=== PATIENT | male | born 1950 | race Caucasian/White ===

== ENCOUNTER 2021-06-11 18:16 | Outpatient (REF) | payer MEDICARE, SELFPAY ==
[2021-06-11 18:03] LABS: Anion Gap 7.1 mmol/L (3-11); BUN 21 mg/dL (7-18); CO2 28.9 mmol/L (21.0-32.0); CREATININE 1.2 mg/dL (0.70-1.30); Calcium 8.7 mg/dL (8.5-10.1); Chloride 105 mmol/L (98-107); Estimated GFR 59.51 (mL/min/1.73m2); Glucose 86 mg/dL (74-106); Potassium 4.2 mmol/L (3.5-5.1); Sodium 141 mmol/L (136-145)
[2021-06-11 18:15] LABS: Calculated LDL 172 mg/dL (<100); Cholesterol 233 mg/dL (<200); HDL Cholesterol 49 mg/dL (40-60); Triglyceride 63 mg/dL (<150)
== END 2021-06-11 18:17 | disposition home or self-care (01) ==
LOC: NCHCN 18:16
PROVIDERS: Visit Provider Registered Nurse
DX: Z02.89 Encounter for other administrative examinations (principal); Z00.00 Encounter for general adult medical examination without abnormal findings
CPT/HCPCS: 80048; 80061

== ENCOUNTER 2023-04-13 13:36 | Outpatient (REF) | payer MEDICARE, SELFPAY ==
--- OUTSIDE RECORDS SUMMARY | 2023-04-13 13:42 | XMS_ITS | CCD ---
Author Name Unknown Address [address] [place] [address] [id number] Organization Unknown Address [address] [place] [address] [phone] Care Team Providers Care Hoop Puncher Name Role Phone DANIEL COLLAZOANMARIE Attending Physician [phone] Vital Signs Unknown or Not Available. Allergies Allergy Code Allergy Type Reaction Status No Known Drug Allergies 0 No known drug allergies Active Procedures Unknown or Not Available. History of Immunizations Immunization Code Date Td (adult), 5 Lf tetanus toxoid, preservative fr ee, adsorbed 113 02/24/2022 Problems Problem Code Start Date Resolved Date Status Seizure [id number] Active Results Unknown or Not Available. Active Medications Medication Code Dose Units Frequency Route Modificatio n Start Date/Time Keppra 1000MG Oral Tablet 117105 1 TABLET THREE TIMES A DAY ORAL 02/24/2023 13:53 Prescription Detail TAKE 1 TABLET ORAL THREE TIMES A DAY Meloxicam 15MG Oral Tablet 732115 15 MILLIGRAMS NEEDED ORAL 023 13:53 Prescription Detail TAKE 15 MILLIGRAMS ORAL NEEDED Potassium Chloride 20MEQ Oral Tablet, Extended Release 4680601 1 TABLET TWICE A DAY ORAL 02/25/20 23 13:53 Prescription Detail TAKE 1 TABLET ORAL TWICE A DAY x 5 days then continue 1 tab daily Medications Administered During Visit Unknown or Not Available. Encounters Unknown or Not Available. Social History Smoking Status Code Start Date End Date Former smoker [id number] Patient Decision Aids Unknown or Not Available. Discharge Instructions You were admitted to [facility] on 03/30/2023 09:37 You were discharged from [facility] on 03/30/2023 09:37 Should you have any questions prior to discharge, please contact a member of your healthcare team. If you have left the hospital and have any questions, please contact your primary care physician. Chief Complaint and Reason For Visit Unknown or Not Available. Function Status Unknown or Not Available. Plan of Care Unknown or Not Available. Referral/Transition of Care Unknown or Not Available.
--- OUTSIDE RECORDS SUMMARY | 2023-04-13 13:43 | XMS_ITS | CCD ---
Author Name Unknown Address [address] [place] [address] [phone] Organization Unknown Address [address] [place] [address] [phone] Care Team Providers Care Pattern Filer Name Role Phone JULIETA SIMS Attending Physician [phone] Vital Signs Unknown or Not Available. Allergies Allergy Code Allergy Type Reaction Status No Known Drug Allergies 0 No known drug allergies Active Procedures Unknown or Not Available. History of Immunizations Immunization Code Date Td (adult), 5 Lf tetanus toxoid, preservative fr ee, adsorbed 113 02/24/2022 Problems Problem Code Start Date Resolved Date Status Seizure [id number] Active Results BASIC METABOLIC PANEL (BMP) - Collect Date/Time: 03/18/2023 09:13 Test Name Code Test Result Test Units Test Ref Rang e GLUCOSE 2345-7 76 mg/dL L=70 H=116 BUN 3094-0 16 mg/dL L=6 H=25 CREATININE 2160-0 1.25 mg/dL L=0.67 H=1.17 SODIUM SERUM 2951-2 136 mmol/L L=136 H=145 POTASSIUM SERUM 2823-3 4.4 mmol/L L=3.4 H=5 .2 CHLORIDE SERUM 2075-0 101 mmol/L L=96 H=110 CARBON DIOXIDE (CO2) 2028-9 29 mmol/L L=22 H=34 ANION GAP 17925-4 5.8 mmol/L CALCIUM SERUM 70701-0 8.7 mg/dL L=8.2 H=10. 2 AGE 72 years eGFR (non-Afr.Amer.) 56017-8 57 mL/min eGFR (Afr-Chinese) 71489-2 69 mL/min FERRITIN - Collect Date/Time : 03/18/2023 09:13 Test Name Code Test Result Test Units Test Ref Rang e FERRITIN 2276-4 131 ng/mL L=8 H=388 FREE THYROXINE (FREE T4)* - Collect Date/Time: 03/18/2023 09:13 Test Name Code Test Result Test Units Test Ref Rang e FREE THYROXINE 3024-7 1.07 ng/dL L=0.76 H=1 .46 IRON - Collect Date/Time: 09:13 Test Name Code Test Result Test Units Test Ref Rang e IRON 2498-4 102 ug/dL L=35 H=150 IRON BINDING CAPACITY - Dominique ect Date/Time: 03/18/2023 09:13 Test Name Code Test Result Test Units Test Ref Rang e IBC 2500-7 292 ug/dL L=260 H=400 MAGNESIUM SERUM* - Collect D ate/Time: 03/18/2023 09:13 Test Name Code Test Result Test Units Test Ref Rang e MAGNESIUM 30646-2 2.1 mg/dL L=1.8 H=2.4 TSH THYROID STIMULATING HORM ONE* - Collect Date/Time: 03/18/2023 09:13 Test Name Code Test Result Test Units Test Ref Rang e TSH 3014-8 2.758 uIU/mL L=0.360 H=3.74 0 LDL CHOLESTEROL (DIRECT ASSA Y) - Collect Date/Time: 03/18/2023 09:13 Test Name Code Test Result Test Units Test Ref Rang e LDL Chol(Beta-Quantification), S 36203-3 178 N/A Active Medications Medication Code Dose Units Frequency Route Modificatio n Start Date/Time Keppra 1000MG Oral Tablet 174348 1 TABLET THREE TIMES A DAY ORAL 02/24/2023 13:53 Prescription Detail TAKE 1 TABLET ORAL THREE TIMES A DAY Meloxicam 15MG Oral Tablet 285104 15 MILLIGRAMS NEEDED ORAL 023 13:53 Prescription Detail TAKE 15 MILLIGRAMS ORAL NEEDED Potassium Chloride 20MEQ Oral Tablet, Extended Release 8325963 1 TABLET TWICE A DAY ORAL 02/25/20 23 13:53 Prescription Detail TAKE 1 TABLET ORAL TWICE A DAY x 5 days then continue 1 tab daily Medications Administered During Visit Unknown or Not Available. Encounters Encounter Diagnosis Diagnosis Code Start Date Unspecified convulsions R569 03/18/20 Social History Smoking Status Code Start Date End Date Former smoker [id number] Patient Decision Aids Unknown or Not Available. Discharge Instructions You were admitted to [facility] on 03/18/2023 08:59 with a principal diagnosis of Unspecified convulsions You had the following tests done:BASIC METABOLIC PANEL (BMP)FERRITINFREE THYROXINE (FREE T4)*IRONIRON BINDING CAPACITYLDL CHOLESTEROL (DIRECT ASSAY)MAGNESIUM SERUM*TSH THYROID STIMULATING HORMONE* You were discharged from [facility] on 03/18/2023 08:59 Should you have any questions prior to [...]
--- OUTSIDE RECORDS SUMMARY | 2023-04-13 13:43 | XMS_ITS | CCD ---
Author Name Unknown Address [address] [place] [address] [phone] Organization Unknown Address [address] [place] [address] [phone] Care Team Providers Care Process Owner Name Role Phone JOSH MUNIZ Attending Physician [phone] CAROL LEVI Er Physician 0 [phone] CEDRIC Paul Registered Nurse [phone] Vital Signs Vital Sign Value Unit Date/Time Recent/Initial ? BMI (Body Mass Index) 26.63 kg/m^2 02/24/2022 16: 56 Initial VS Weight Measured 170 lbs 02/24/2022 16:56 Ini tial VS Height 67 in 02/24/2022 16:56 Initial VS BSA (Body Surface Area) 1.91 m^2 02/24/2022 1 6:56 Initial VS BP Systolic 122 mmHg 02/24/2022 16:56 Initial VS BP Diastolic 89 mmHg 02/24/2022 16:56 Initia l VS Respiratory Rate 14 bpm 02/24/2022 16:56 In itial VS Heart Rate 55 bpm 02/24/2022 16:56 Initial VS O2 % BldC Oximetry 99 % 02/24/2022 16:56 Initial VS Body Temperature 36.9 degrees 02/24/2022 16:56 In itial VS Allergies Allergy Code Allergy Type Reaction Status No Known Drug Allergies 0 No known drug allergies Active Procedures Unknown or Not Available. History of Immunizations Immunization Code Date Td (adult), 5 Lf tetanus toxoid, preservative fr ee, adsorbed 113 02/24/2022 Problems Problem Code Start Date Resolved Date Status Seizure [id number] Active Vertigo [id number] 02/24/2023 Resolved Vertigo [id number] 02/24/2023 Resolved Results Unknown or Not Available. Active Medications Medications Administered During Visit Medication Dose Units Frequency Route Date/Time of Last Dose TETANUS/DIPTHERIA TOX SDV AD ULT 0.5ML 0.5 ML X1 IM 02/24/2022 17:1 2 Encounters Encounter Diagnosis Diagnosis Code Start Date Laceration without foreign b sukhi of right hand, initial encounter [id number] 02/24/2022 Social History Unknown or Not Available. Patient Decision Aids Unknown or Not Available. Discharge Instructions You were admitted to [facility] on 02/24/2022 16:35 with a principal diagnosis of Laceration without foreign body of right hand, initial encounter You were discharged from [facility] on 02/24/2022 18:16 Should you have any questions prior to discharge, please contact a member of your healthcare team. If you have left the hospital and have any questions, please contact your primary care physician. Chief Complaint and Reason For Visit Chief Complaint Date of Onset HAND LACERATION Function Status Unknown or Not Available. Plan of Care Unknown or Not Available. Referral/Transition of Care Unknown or Not Available.
--- OUTSIDE RECORDS SUMMARY | 2023-04-13 13:43 | XMS_ITS | CCD ---
Author Name Unknown Address [address] [place] [address] [phone] Organization Unknown Address [address] [place] [address] [phone] Care Team Providers Care Operations Lead Name Role Phone DANIEL COLLAZOANMARIE Attending Physician [phone] Vital Signs Unknown or Not Available. Allergies Allergy Code Allergy Type Reaction Status No Known Drug Allergies 0 No known drug allergies Active Procedures Unknown or Not Available. History of Immunizations Immunization Code Date Td (adult), 5 Lf tetanus toxoid, preservative fr ee, adsorbed 113 02/24/2022 Problems Problem Code Start Date Resolved Date Status Seizure 79727447 Active Results Unknown or Not Available. Active Medications Medication Code Dose Units Frequency Route Modificatio n Start Date/Time Keppra 1000MG Oral Tablet 930966 1 TABLET THREE TIMES A DAY ORAL 02/24/2023 13:53 Prescription Detail TAKE 1 TABLET ORAL THREE TIMES A DAY Meloxicam 15MG Oral Tablet 895032 15 MILLIGRAMS NEEDED ORAL 023 13:53 Prescription Detail TAKE 15 MILLIGRAMS ORAL NEEDED Potassium Chloride 20MEQ Oral Tablet, Extended Release 1293789 1 TABLET TWICE A DAY ORAL 02/25/20 23 13:53 Prescription Detail TAKE 1 TABLET ORAL TWICE A DAY x 5 days then continue 1 tab daily Medications Administered During Visit Unknown or Not Available. Encounters Encounter Diagnosis Diagnosis Code Start Date Localization-related symptomatic epilepsy [id number] 002 03/23/2023 Social History Smoking Status Code Start Date End Date Former smoker [id number] Patient Decision Aids Unknown or Not Available. Discharge Instructions You were admitted to [facility] on 03/23/2023 09:04 with a principal diagnosis of Localization-related (focal) (partial) symptomatic epilepsy and epileptic syndromes with complex partial seizures, not intractable, without status epilepticus You were discharged from [facility] on 03/23/2023 09:04 Should you have any questions prior to [...]
--- OUTSIDE RECORDS SUMMARY | 2023-04-13 13:43 | XMS_ITS | CCD ---
Author Name Unknown Address [address] [place] [address] [phone] Organization Unknown Address [address] [place] [address] [phone] Care Team Providers Care Baby Stroller Rental Clerk Name Role Phone JULIETA SIMS Attending Physician [phone] NEELAM MENCHACA Er Physician 2 [phone] AMARJIT SALINAS (Secondary) Physician 8 [phone] Tulio, WOLFGANG Medina Registered Nurse [phone] G., ALICIA Fisher Registered Nurse [phone] N., ADI Registered Nurse [phone] Vital Signs Vital Sign Value Unit Date/Time Recent/Initial ? BMI (Body Mass Index) 26.63 kg/m^2 02/23/2023 11: 09 Initial VS Weight Measured 170 lbs 02/23/2023 11:09 Ini tial VS Height 67 in 02/23/2023 11:09 Initial VS BSA (Body Surface Area) 1.91 m^2 02/23/2023 1 1:09 Initial VS BP Systolic 133 mmHg 02/23/2023 11:09 Initial VS BP Diastolic 81 mmHg 02/23/2023 11:09 Initia l VS Respiratory Rate 16 bpm 02/23/2023 11:09 In itial VS Heart Rate 62 bpm 02/23/2023 11:09 Initial VS O2 % BldC Oximetry 100 % 02/23/2023 11:09 Initial VS Body Temperature 35.6 degrees 02/23/2023 11:09 In itial VS BP Systolic 104 mmHg 02/24/2023 09:58 Most Re cent VS BP Diastolic 70 mmHg 02/24/2023 09:58 Most R ecent VS Respiratory Rate 15 bpm 02/24/2023 09:[address] Recent VS Heart Rate 59 bpm 02/24/2023 09:58 Most Rec ent VS O2 % BldC Oximetry 98 % 02/24/2023 09:58 Most Recent VS Body Temperature 35.9 degrees 02/24/2023 09:[address] Recent VS BMI (Body Mass Index) 26.63 kg/m^2 02/24/2023 09: 59 Most Recent VS Weight Measured 170 lbs 02/24/2023 09:59 Mos t Recent VS Height 67 in 02/24/2023 09:59 Most Rec ent VS BSA (Body Surface Area) 1.91 m^2 02/24/2023 0 9:59 Most Recent VS Allergies Allergy Code Allergy Type Reaction Status No Known Drug Allergies 0 No known drug allergies Active Procedures Unknown or Not Available. History of Immunizations Immunization Code Date Td (adult), 5 Lf tetanus toxoid, preservative fr ee, adsorbed 113 02/24/2022 Problems Problem Code Start Date Resolved Date Status Seizure [id number] Active Vertigo [id number] 02/24/2023 Resolved Vertigo 114465652 02/24/2023 Resolved Results AMMONIA - Collect Date/Time: 02/23/2023 13:40 Test Name Code Test Result Test Units Test Ref Rang e AMMONIA 12165-1 19 umol/L L=19 H=54 BASIC METABOLIC PANEL (BMP) - Collect Date/Time: 02/24/2023 06:20 Test Name Code Test Result Test Units Test Ref Rang e GLUCOSE 2345-7 77 mg/dL L=70 H=116 BUN 3094-0 8 mg/dL L=6 H=25 CREATININE 2160-0 0.79 mg/dL L=0.67 H=1.17 SODIUM SERUM 2951-2 144 mmol/L L=136 H=145 POTASSIUM SERUM 2823-3 2.9 mmol/L L=3.4 H=5 .2 CHLORIDE SERUM 2075-0 115 mmol/L L=96 H=110 CARBON DIOXIDE (CO2) 2028-9 21 mmol/L L=22 H=34 ANION GAP 93358-5 7.6 mmol/L CALCIUM SERUM 58338-1 6.1 mg/dL L=8.2 H=10. 2 AGE 72 years eGFR (non-Afr.Amer.) 81616-6 96 mL/min eGFR (Afr-Algerian) 76534-0 116 mL/min COMPREHENSIVE METABOLIC PANE L (CMP) - Collect Date/Time: 02/23/2023 11:40 Test Name Code Test Result Test Units Test Ref Rang e GLUCOSE 2345-7 113 mg/dL L=70 H=116 BUN 3094-0 18 mg/dL L=6 H=25 CREATININE 2160-0 1.25 mg/dL L=0.67 H=1.17 SODIUM SERUM 2951-2 136 mmol/L L=136 H=145 POTASSIUM SERUM 2823-3 3.5 mmol/L L=3.4 H=5 .2 CHLORIDE SERUM 2075-0 100 mmol/L L=96 H=110 CARBON DIOXIDE (CO2) 2028-9 23 mmol/L L=22 H=34 ANION GAP 28880-7 12.9 mmol/L CALCIUM SERUM 18195-6 8.6 mg/dL L=8.2 H=10. 2 BILIRUBIN TOTAL 1975-2 1.0 mg/dL L=0.0 H=1 .3 ALK. PHOS. 6768-6 63 U/L L=46 H=116 SGOT (AST) 1920-8 34 U/L L=15 H=37 SGPT (ALT) 1742-6 29 U/L L=12 H=78 TOTAL PROTEIN 2885-2 7.5 gm/dL L=6.0 H=8.0 ALBUMIN 1751-7 3.5 gm/dL L=3.4 H=5.0 AGE 72 years eGFR (non-Afr.Amer.) 57241-0 57 mL/min eGFR (Afr-Algerian) 03043-5 69 mL/min LACTIC ACID - Collect Date/T zac: 02/24/2023 06:20 Test Name Code Test Result Test Units Test Ref Rang e LACTIC ACID 60857-2 0.6 mmol/L L=0.7 H=2.1 LACTIC ACID - Collect Date/T zac: 02/23/2023 11:40 Test Name Code Test Result Test Units Test Ref Rang e LACTIC ACID 84244-5 4.3 mmol/L L=0.7 H=2.1 LIPASE* NEW - Collect Date/T zac: 02/23/2023 11:40 Test Name Code Test Result Test Units Test Ref Rang e LIPASE. 56 U/L L=16 H=77 MAGNESIUM SERUM* - Collect D ate/Time: 02/24/2023 06:20 Test Name Code Test Result Test Units Test Ref Rang e MAGNESIUM 22104-9 1.2 mg/dL L=1.8 H=2.4 MAGNESIUM SERUM* - Collect D ate/Time: 02/23/2023 11:40 Test Name Code Test Result Test Units Test Ref Rang e MAGNESIUM 16716-1 1.7 mg/dL L=1.8 H=2.4 NOVA GLUCOSE FINGER HEEL CAP ILLARY - Collect Date/Time: 02/23/2023 11:30 Test Name Code Test Result Test Units Test Ref Rang e GLUCOSE CAP 39852-1 111 mg/dL L=70 H=116 CBC W/ DIFFERENTIAL* - Colle ct Date/Time: 02/24/2023 06:20 Test Name Code Test Result Test Units Test Ref Rang e WBC 6690-2 5.65 th/cmm L=5.00 H=10.00 NEUT % 72.8 % L=40.0 H=80.0 LYMPH % 14.2 % L=10.0 H=50.0 MONO % 08621-4 8.0 % L=2.0 H=12.0 EOS % 3.9 % L=0.0 H=8.0 BASO % 0.9 % L=0.0 H=3.0 IG % 2514-8 0.2 % L=0.0 H=1.1 NRBC % 16077-3 0.0 % L=0.0 H=0.0 NEUT abs count 751-8 4.1 th/cmm L=1.6 H=8. 4 LYMPH abs count 731-0 0.8 th/cmm L=1.5 H=4 .0 MONO abs count 742-7 0.5 th/cmm L=0.2 H=1. 0 EOS abs count 711-2 0.2 th/cmm L=0.0 H=0.5 BASO abs count 704-7 0.1 th/cmm L=0.0 H=0. 2 IG abs count 81366-0 0.0 th/cmm L=0.0 H=0.1 NRBC abs count 94800-3 0.0 mil/cmm L=0.0 H=0. 0 RBC 789-8 3.96 mil/cmm L=4.30 H=6.20 HEMOGLOBIN 718-7 11.6 gm/dL L=13.0 H=17.0 HEMATOCRIT 4544-3 35 % L=45 H=52 MCV 787-2 88 fL L=82 H=92 MCH 785-6 29.3 pg L=27.0 H=31.0 MCHC 786-4 33.2 % L=32.0 H=36.0 RDW-SD 788-0 41.9 fL L=39.0 H=49.0 PLATELET COUNT 777-3 190 th/cmm L=150 H=45 0 CBC W/ DIFFERENTIAL* - Colle ct Date/Time: 02/23/2023 11:40 Test Name Code Test Result Test Units Test Ref Rang e WBC 6690-2 5.80 th/cmm L=5.00 H=10.00 NEUT % 69.6 % L=40.0 H=80.0 LYMPH % 16.4 % L=10.0 H=50.0 MONO % 35243-1 9.3 % L=2.0 H=12.0 EOS % 3.1 % L=0.0 H=8.0 BASO % 1.4 % L=0.0 H=3.0 IG % 2514-8 0.2 % L=0.0 H=1.1 NRBC % 48478-6 0.0 % L=0.0 H=0.0 NEUT abs count 751-8 4.0 th/cmm L=1.6 H=8. 4 LYMPH abs count 731-0 1.0 th/cmm L=1.5 H=4 .0 MONO abs count 742-7 0.5 th/cmm L=0.2 H=1. 0 EOS abs count 711-2 0.2 th/cmm L=0.0 H=0.5 BASO abs count 704-7 0.1 th/cmm L=0.0 H=0. 2 IG abs count 25574-5 0.0 th/cmm L=0.0 H=0.1 NRBC abs count 76474-4 0.0 mil/cmm L=0.0 H=0. 0 RBC 789-8 4.45 mil/cmm L=4.30 H=6.20 HEMOGLOBIN 718-7 13.2 gm/dL L=13.0 H=17.0 HEMATOCRIT 4544-3 38 % L=45 H=52 MCV 787-2 86 fL L=82 H=92 MCH 785-6 29.7 pg L=27.0 H=31.0 MCHC 786-4 34.4 % L=32.0 H=36.0 RDW-SD 788-0 40.0 fL L=39.0 H=49.0 PLATELET COUNT 777-3 228 th/cmm L=150 H=45 0 PT PROTHROMBIN TIME* - Colle ct Date/Time: 02/23/2023 11:40 Test Name Code Test Result Test Units Test Ref Rang e PROTIME 5902-2 9.5 seconds L=9.3 H=11.4 INR 47759-2 0.91 L=2.00 H=3.00 PTT PARTIAL THROMBOPLASTIN T ZAC* - Collect Date/Time: 02/23/2023 11:40 Test Name Code Test Result Test Units Test Ref Rang e PTT 39123-3 23.2 seconds L=24.5 H=32.8 DRUG SCN 13 PANEL (MEDTOX)* - Collect Date/Time: 02/23/2023 18:29 Test Name Code Test Result Test Units Test Ref Rang e CANNABINOIDS 61622-1 NEGATIVE N/A Cutoff = 50 ng/mL PHENCYCLIDINE 77306-3 NEGATIVE N/A Cutoff = 25 ng/mL COCAINE 48471-6 NEGATIVE N/A Cutoff = 150 n g/mL METHAMPHETAMINES 24314-3 NEGATIVE N/A Cutoff = 500 ng/mL OPIATES 32424-6 NEGATIVE N/A Cutoff = 100 n g/mL AMPHETAMINES 98428-0 NEGATIVE N/A Cutoff = 500 ng/mL BENZODIAZEPINES 80789-3 POSITIVE N/A Cutoff = 150 ng/mL TRICYCLIC ANTIDEP 3533-7 NEGATIVE N/A Cutoff = 300 ng/mL METHADONE 42230-3 NEGATIVE N/A Cutoff = 200 n g/mL BARBITURATES 76395-7 NEGATIVE N/A Cutoff = 200 ng/mL OXYCODONE 74413-2 NEGATIVE N/A Cutoff = 100 n g/mL PROPOXYPHENE 43232-5 NEGATIVE N/A Cutoff = 300 ng/mL BUPRENORPHINE 3414-0 NEGATIVE N/A Cutoff = 10 mg/mL URINALYSIS WITH REFLEX CULT IF POSITIVE* - Collect Date/Time: 02/23/2023 18:29 Test Name Code Test Result Test Units Test Ref Rang e COLLECTION MODE: 60638-4 CLEAN CATCH N/A Color 5778-6 YELLOW N/A yellow Appearance 5767-9 CLEAR N/A clear Glucose urine 88349-2 NEGATIVE N/A negative mg /dl Bilirubin 5770-3 NEGATIVE N/A negative Ketones 2514-8 NEGATIVE N/A negative mg/dl Spec gravity 5811-5 1.010 N/A 1.003 - 1.03 0 pH urine 2756-5 8.0 N/A 5.0 - 7.0 Protein 80472-8 NEGATIVE N/A negative mg/dl Urobilinogen 01373-9 0.2 N/A <or= 1 EU/dl Nitrite. 5802-4 NEGATIVE N/A negative Blood 5794-3 NEGATIVE N/A negative Leukocytes. NEGATIVE N/A negative MICROSCOPIC NOT INDICAT N/A PROLACTIN - Collect Date/Angel e: 02/23/2023 13:40 Test Name Code Test Result Test Units Test Ref Rang e Prolactin 14.4 N/A 2.1-17.7 Active Medications Medication Code Dose Units Frequency Route Modificatio n Start Date/Time Keppra 1000MG Oral Tablet 898959 1 TABLET THREE TIMES A DAY ORAL 02/24/2023 13:53 Prescription Detail TAKE 1 TABLET ORAL THREE TIMES A DAY Meloxicam 15MG Oral Tablet 102787 15 MILLIGRAMS NEEDED ORAL 023 13:53 Prescription Detail TAKE 15 MILLIGRAMS ORAL NEEDED Potassium Chloride 20MEQ Oral Tablet, Extended Release 8532029 1 TABLET TWICE A DAY ORAL 02/25/20 23 13:53 Prescription Detail TAKE 1 TABLET ORAL TWICE A DAY x 5 days then continue 1 tab daily Medications Administered During Visit Medication Dose Units Frequency Route Date/Time of Last Dose ONDANSETRON INJ SDV: 4MG/2ML 4 MG X1 I ELECTRIC LOCOMOTIVE FIRER/FIREMAN 02/23/2023 12:18 LORazepam INJ SYRINGE: 2MG/ML 1 MG X1 IVP 02/23/2023 12:51 LevETIRAcetam IVPB PREMIX: 500MG/100ML 2000 MG X1 IVPB 02/23/2023 13:2 1 LORazepam INJ SYRINGE: 2MG/ML 1 MG X1 IVP 02/23/2023 13:22 LORazepam INJ SYRINGE: 2MG/ML 1 MG X1 IVP 02/23/2023 13:21 LACTATED RINGERS 1000ML 1000 ML X1 IV 02/23/2023 13:51 ONDANSETRON INJ SDV: 4MG/2ML 4 MG X1 I ELECTRIC LOCOMOTIVE FIRER/FIREMAN 02/23/2023 15:10 LevETIRAcetam TABLET: 250MG 1000 MG X1 PO 02/23/2023 22:37 ACETAMINOPHEN INJ IVPB: 1000MG/100ML 1000 MG PRN Q6H IVPB 02/23/2023 20:1 5 LevETIRAcetam TABLET: 250MG 1500 MG BID PO 02/24/2023 08:30 MAGNESIUM SULF PREMIX IV BAG : 4GM/100ML 4 GM X1 IVPB 02/24/2023 07:5 1 POTASSIUM CHL TABLET: 20mEq 20 MEQ X1 PO 02/24/2023 08:30 POTASSIUM CHL TABLET: 20mEq 20 MEQ TID WITH TJ D PO 02/24/2023 13:01 POTASSIUM CHL TABLET: 20mEq 20 MEQ X1 PO 02/24/2023 16:21 Encounters Encounter Diagnosis Diagnosis Code Start Date Localization-related (focal) (partial) symptomatic epilepsy and epileptic syndromes with complex partial seizures, not intractable, without status epilepticus [id number] 02/23/2023 Social History Smoking Status Code Start Date End Date Former smoker [id number] Patient Decision Aids Patient Decision Aid Patient Portal Access Discharge Instructions You were admitted to [facility] on 02/23/2023 16:15 with a principal diagnosis of Local-rel symptc epi w cmplx prt seiz,not ntrct,w/o stat epi You had the following tests done:BASIC METABOLIC PANEL (BMP)CBC W/ DIFFERENTIAL*LACTIC ACIDMAGNESIUM SERUM*DRUG SCN 13 PANEL (MEDTOX)*URINALYSIS WITH REFLEX CULT IF POSITIVE*AMMONIAPROLACTINCBC W/ DIFFERENTIAL*COMPREHENSIVE METABOLIC PANEL (CMP)LACTIC ACIDLIPASE* NEWMAGNESIUM SERUM*PT PROTHROMBIN TIME*PTT PARTIAL THROMBOPLASTIN TIME*NOVA GLUCOSE FINGER HEEL CAPILLARY You were discharged from [facility] on 02/24/2023 16:40 Should you have any questions prior to discharge, please contact a member of your healthcare team. If you have left the hospital and have any questions, please contact your primary care physician. Chief Complaint and Reason For Visit Chief Complaint Date of Onset SEIZURES 02/24/2023 Function Status Unknown or Not Available. Plan of Care Unknown or Not Available. Referral/Transition of Care Unknown or Not Available.
[2023-04-13 15:02] LABS: Anion Gap 10.3 mmol/L (3-11); BUN 22 mg/dL (7-18); CO2 24.7 mmol/L (21.0-32.0); CREATININE 1.3 mg/dL (0.70-1.30); Calcium 9.1 mg/dL (8.5-10.1); Chloride 104 mmol/L (98-107); Estimated GFR 58.01 (mL/min/1.73m2); Glucose 90 mg/dL (74-106); Potassium 4.1 mmol/L (3.5-5.1); Sodium 139 mmol/L (136-145)
== END 2023-04-13 13:37 | disposition home or self-care (01) ==
LOC: NCHCN 13:36
PROVIDERS: Visit Provider Family Medicine
DX: E83.42 Hypomagnesemia (principal); E87.6 Hypokalemia; E83.51 Hypocalcemia
CPT/HCPCS: 80048

== ENCOUNTER 2024-01-07 12:48 | Outpatient (REF) | payer MEDICARE, SELFPAY ==
[2024-01-07 15:53] LABS: Calculated LDL 124 mg/dL (<100); Cholesterol 196 mg/dL (<200); HDL Cholesterol 61 mg/dL (40-60); Triglyceride 59 mg/dL (<150)
[2024-01-07 22:50] LABS: PSA, Screening 1.5 ng/mL (<=6.5)
== END 2024-01-07 12:49 | disposition home or self-care (01) ==
LOC: NCHCN 12:48
PROVIDERS: PCP Family Medicine; Visit Provider Family Medicine
DX: E78.5 Hyperlipidemia, unspecified (principal); Z12.5 Encounter for screening for malignant neoplasm of prostate
CPT/HCPCS: 80061; 84153